=== PATIENT | female | born 1975 | race Caucasian/White ===

== ENCOUNTER 2018-02-09 10:10 | Day surgery (SDC) | END 2018-02-09 14:53 | disposition home or self-care (01) ==

== ENCOUNTER 2018-12-31 06:31 | Day surgery (SDC) | payer OTHER ==
[2018-12-31] VITALS (11 sets, daily range): BP systolic 125–140; BP diastolic 51–71; PULSE 64–92; RESP 11–18
[~2018-12-31 06:31] MED LIST: FER325 PO
[2018-12-31] MEDS ORDERED: SOD CHLORIDE 0.9% 1,000 ML IV SCH (10:00)
[2018-12-31] MEDS ORDERED: CEFAZOLIN 2 GM/50 ML (PMX) 50 ML IVPB SCH (10:00)
[2018-12-31] MEDS ORDERED: BUPIVACAINE 0.25% (MPF) 30 ML INJ ONE (12:49)
--- NOTE | 2018-12-31 12:49 | PREAC ---
Date/Time of Note Date/Time of Note DATE: 12/31/18 TIME: 12:48 Anesthesia Eval and Record Evaluation Time Pre-Procedure Interview DATE: 12/31/18 TIME: 12:48 Age 43 Sex female NPO: 8 hrs Preoperative diagnosis brest mass Planned procedure needle look brest mass removal Past Medical History Past Medical History: None Surgery & Anesthesia Issues No known issue Meds Anticoagulation: No Beta Annette within 24 hr: No Reason Beta Annette not given: Pt. not on B-Annette Discontinued Reported Medications Ferrous Sulfate* (Ferrous Sulfate*) 325 Mg Tabec, 325 MG PO DAILY, TAB 02/09/18 Current Medications Sodium Chloride 1,000 ml @ 75 mls/hr [id number] IV Last administered on 12/31/18at 09:55; Admin Dose 75 MLS/HR; Start 12/31/18 at 10:00; Stop 12/31/18 at 22:00 Meds reviewed: Yes Allergies Coded Allergies: No Known Drug Allergy (Verified Allergy, Unknown, 12/31/18) Allergies Reviewed: Yes Labs/Studies Labs Reviewed: Reviewed by anesthesiologist test: Negative Pre-procedure Exam Last vitals Vital Signs Date Temp Pulse Resp B/P (MAP) Pulse Ox O2 O2 Flow FiO2 Time Delivery Rate 12/31/18 97.6 71 16 132/66 99 Room Air 09:52 (88) Airway: Adequate mouth opening Mallampati: Mallampati I Teeth: Normal Lung: Normal Heart: Normal ASA Physical Status ASA physical status: 1 Emergency: None Planned Anesthetic General/MAC: ETT, LMA Pre-operative Attestations Prior to commencing anesthesia and surgery, the patient was re-evaluated, there was verification of: *The patient's identity *The results of appropriate recent lab work and preoperative vital signs *The above evaluation not changing prior to induction *Anesthetic plan, risk benefits, alternative and complications discussed with patient/family; questions answered; patient/family understands, accepts and wishes to proceed. SHEN MAST MD Dec 31, 2018 12:49
[2018-12-31] MEDS ORDERED: HYDROmorphONE 2 MG/ML SYG ONE (13:09)
[2018-12-31] MEDS ORDERED: FENTAnyl 50 MCG/ML VIAL ONE (13:09)
[2018-12-31] MEDS ORDERED: PROPOFOL 20 ML ONE (13:09)
[2018-12-31] MEDS ORDERED: ONDANSETRON 4 MG INJ ONE (13:29)
--- NOTE | 2018-12-31 13:50 | OPR ---
Date/Time of Note Date/Time of Note DATE: 12/31/18 TIME: 13:47 Operative Report Procedure Date: Dec 31, 2018 Preoperative Diagnosis left breast tumor Postoperative Diagnosis same Operation/Procedure Performed 1. left partial mastectomy 5 cm tumor 5 cm incision 2. localized adjacent tissue transfer with the use of skin flaps 10 sq cm defect left breast 3. therapeutic injection of subcutaneous local anesthesia Surgeon see signature line [employer] none Anesthesia Type: general Estimated Blood Loss: 0 - 10 ml's Transfusion none Specimen left breast tumor Grafts/Implants none Complications none Pt Condition Post Procedure: stable Indications This is a 43-year-old female with a left breast tumor. 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 However patient has pain and request surgical excision of the fibroadenoma. Risks alternatives benefits and personally discussed the patient. Patient expressed understanding and consents to the operation. Procedure Description Patient is taken to the OR and prepped and draped in usual sterile fashion. Radiographic imaging is reviewed prior to making incision which is guided by the needle localization. Curvilinear incision was made at the 15 blade over the left upper superior breast. Dissection with cautery is good onto the area directed by the needle. Cautery was used to make a circumferential excision of the tumor. Good hemostasis status. Due to tissue defect localization to stress of these of skin flaps was performed. Multilayer closure with interrupted 0 Vicryl and running 4-0 Monocryl. Therapeutic contains local anesthesia was injected at the incision site. Steri-Strips and dry dressings were applied. Chance ROMERO Dec 31, 2018 13:50
[2018-12-31] MEDS ORDERED: HYDROCODONE/APAP (5/325) TAB PO ONE (14:00)
[2018-12-31] MEDS ORDERED: hydrALAzine 20 MG INJ IV PRN (14:00)
[2018-12-31] MEDS ORDERED: LABETALOL HCL 20MG INJ IV PRN (14:00)
[2018-12-31] MEDS ORDERED: KETOROLAC 30 MG INJ IV PRN (14:00)
[2018-12-31] MEDS ORDERED: ONDANSETRON 4 MG INJ IV PRN (14:00)
[2018-12-31] MEDS ORDERED: HYDROmorphONE 1 MG/5 ML IV SYRINGE IV PRN ×2 (14:00)
[2018-12-31] MEDS ORDERED: METOCLOPRAMIDE 10 MG INJ IV PRN (14:00)
[2018-12-31] MEDS ORDERED: MEPERIDINE 25 MG INJ IV PRN (14:00)
--- NOTE | 2018-12-31 14:52 | PAC ---
Date/Time of Note Date/Time of Note DATE: 12/31/18 TIME: 14:52 Post-Anesthesia Notes Post-Anesthesia Note Last documented vital signs Vital Signs Date Temp Pulse Resp B/P (MAP) Pulse Ox O2 O2 Flow FiO2 Time Delivery Rate 12/31/18 98.2 14:46 12/31/18 92 14 126/58 100 Room Air 14:19 (80) Activity: WNL Respiratory function: WNL Cardiovascular function: WNL Mental status: Baseline Pain reasonably controlled: Yes Hydration appropriate: Yes Nausea/Vomiting absent: Yes SHEN MAST MD Dec 31, 2018 14:52
== END 2018-12-31 16:31 | disposition home or self-care (01) ==
LOC: SDS 06:31
PROVIDERS: ATTEND Surgery
DX: D24.2 Benign neoplasm of left breast (principal); Z85.3 Personal history of malignant neoplasm of breast
CPT/HCPCS: 14000; 19301; J1170; J2405; J3010; Z7610